=== PATIENT | male | born 1980 | race Two or more races ===

== ENCOUNTER 2017-05-05 04:54 | Emergency (ER) | payer SELFPAY ==
[~2017-05-05] VITALS: Ht 172.7 cm; Wt 83.9 kg
--- NOTE | 2017-05-05 06:08 | NUR ---
Patient discharged to home in stable conditon. Written and verbal after care instructions given. Patient verbalizes understanding of instructions. Ambulated from ER with stable giat. All belongings with patient. Ulnar gutter splint applied to LUE. [facility]NL.
[2017-05-05 06:12] VITALS: BP 131/85
== END 2017-05-05 06:13 | disposition home or self-care (01) ==
LOC: ER 05:10
DX: S62.617A Displaced fracture of proximal phalanx of left little finger, initial encounter for closed fracture (principal); W23.0XXA Caught, crushed, jammed, or pinched between moving objects, initial encounter; Y93.89 Activity, other specified; Y92.810 Car as the place of occurrence of the external cause; Y99.8 Other external cause status
CPT/HCPCS: 29125; 73130; 99284; A4663